=== PATIENT | female | born 1960 ===

== ENCOUNTER 2024-07-16 12:20 | Emergency (ER) | payer MEDICARE, OTHER, SELFPAY ==
[2024-07-16 12:24] VITALS: BP 146/97
--- NOTE | 2024-07-16 12:46 | ED.GENMED ---
History of Present Illness
<Randall Petersen PA-C - Last Filed: 07/16/24 12:52>
General
Chief Complaint: Fall
Source: patient
Time Seen by Provider: 07/16/24 12:36
History of Present Illness
History of Present Illness:
64-year-old female with no significant past medical history presenting to the emergency department for evaluation after [place] [employer] [place] she was going to the bathroom and prior to getting into the bathroom she stumbled and
fell into a cement wall striking her head/neck and right shoulder against the wall and has had continuous pain since then. There was no LOC, no vomiting, no visual changes, no focal weakness or numbness but patient states she is having the
continuous pain which is why she came to the ER. She does note a history of bilateral shoulder replacements in the past but states she is still able to range of motion her right shoulder with minimal difficulty. No other injury sustained or other
concerns.
Past History
<Randall Petersen PA-C - Last Filed: 07/16/24 12:52>
Past History
ED Past Medical History: None
ED Past Surgical History: Orthopedic
Social History
Tobacco: Non-smoker
Alcohol: None
Drug: None
Living: with family
Review of Systems
<Randall Petersen PA-C - Last Filed: 07/16/24 12:52>
Review of Systems
All Other Systems: ROS reviewed and negative except as documented in HPI and ROS
Phy Exam
<Randall Petersen PA-C - Last Filed: 07/16/24 12:52>
Physical Exam
Physical Exam:
GENERAL: Alert , in no apparent distress, tearful and anxious
EYE: conjunctiva clear
Head: Normocephalic atraumatic, no hematoma
NECK: Supple, no midline tenderness
ENT: mmm.
LUNGS: no acute respiratory distress
NEUROLOGICAL: Alert and oriented
SKIN: Warm and dry, skin intact.
MUSCULOSKELETAL: well perfused. Full range of motion bilateral upper extremities. There is mild tenderness over the trapezius on the right shoulder
PSYCH: Normal and appropriate interaction.
Scores
<Randall Petersen PA-C - Last Filed: 07/16/24 12:52>
Heart Failure Risk
Heart Failure Risk Score: Not Applicable
Heart Score for Chest Pain Patients
STEMI patient?: Not applicable
Withdrawal Assessment of Alcohol
Withdrawal Assessment Completed?: Not applicable
Course
<Randall Petersen PA-C - Last Filed: 07/16/24 12:52>
Orders/Labs/Results
Orders:
Orders
07/16/24 12:44
CT Cervical Spine W/o Iv Contr Urgent
Comment:
Reason For Exam: fall, head/neck pain
CT Head W/o Iv Contrast Urgent
Comment:
Reason For Exam: fall, head/neck pain
CR Shoulder, Trauma - Right Urgent
Comment:
Reason For Exam: fall, right shoulder pain
07/16/24 12:52
Ibuprofen [Motrin] 600 mg PO NOW STA
Vital Signs
Initial and Last Documented VS:
Initial Vital Signs
Temp Pulse Resp BP Pulse Ox
98.1 F 87 20 146/97 98
07/16/24 12:24 07/16/24 12:24 07/16/24 12:24 07/16/24 12:24 07/16/24 12:24
Last Documented Vital Signs
Temp Pulse Resp BP Pulse Ox
98.1 F 78 16 135/78 98
07/16/24 12:24 07/16/24 16:24 07/16/24 16:24 07/16/24 16:24 07/16/24 16:24
<Akosua Abdi PA-C - Last Filed: 07/17/24 03:55>
Orders/Labs/Results
Orders:
Orders
07/16/24 12:44
CT Cervical Spine W/o Iv Contr Urgent
Comment:
Reason For Exam: fall, head/neck pain
CT Head W/o Iv Contrast Urgent
Comment:
Reason For Exam: fall, head/neck pain
CR Shoulder, Trauma - Right Urgent
Comment:
Reason For Exam: fall, right shoulder pain
07/16/24 12:52
Ibuprofen [Motrin] 600 mg PO NOW STA
Vital Signs
Initial and Last Documented VS:
Initial Vital Signs
Temp Pulse Resp BP Pulse Ox
98.1 F 87 20 146/97 98
07/16/24 12:24 07/16/24 12:24 07/16/24 12:24 07/16/24 12:24 07/16/24 12:24
Last Documented Vital Signs
Temp Pulse Resp BP Pulse Ox
98.1 F 78 16 135/78 98
07/16/24 12:24 07/16/24 16:24 07/16/24 16:24 07/16/24 16:24 07/16/24 16:24
<NILESH Reinoso Last Filed: 07/16/24 12:52>
MDM/Problems Addressed
Differential Diagnosis Includes:
Contusion, concussion, intracranial bleeding, shoulder contusion, shoulder impingement, rotator cuff injury, dislocation
MDM/Problems Addressed:
64-year-old female presenting to the ER for evaluation after an accidental trip and fall resulting in head, C-spine and pain. No LOC. No observable signs of trauma however patient does have some mild discomfort over the right trapezius. Patient
very anxious over the fall and concerned about her headache. Will obtain CT of the head and cervical spine, x-ray of the right shoulder ordered. Motrin ordered for pain control
<NILESH Reinoso Last Filed: 07/16/24 12:52>
*Pulse Oximetry
Patient hypoxic: no
<Akosua Abdi PA-C - Last Filed: 07/17/24 03:55>
*Critical Care Note
Total Time (30-74mins, 75-104mins- exclusive of procedures): Not Applicable
<Akosua Abdi PA-C - Last Filed: 07/17/24 03:55>
Update Note
Update Note:
Update 3:47 PM: Received patient in sign out pending imaging studies. CT imaging with frontal scalp hematoma without evidence of acute intracranial traumatic injury or c-spine injury. Left shoulder xray shows hardware in place without any associated
fracture. Discussed findings with patient at bedside. She is comfortable appearing in no distress. Discussed shoulder sling which she says that she already has at home. Feel stable for d/c home with PCP and ortho f/u. Strict return precautions
discussed.
ED Attending Note
<Randall Petersen PA-C - Last Filed: 07/16/24 12:52>
-
Portions of this chart may have been created with voice recognition software.� Occasional wrong word or��sound alike� substitutions may have occurred due to the inherent limitations of voice recognition software.
Discharge Plan
Departure
Patient Disposition: Home (Routine Discharge)
Date of Disposition: 07/16/24
Time of Disposition: 16:16
Patient with high blood pressure during this ER visit?: Yes
Condition: Good
Covid-19: Not Applicable
Discharge Problem:
Fall, Hematoma of frontal scalp, Acute pain of right shoulder
Instructions: Concussion, Adult (DC), BLOOD PRESSURE
Referrals:
UNKNOWN - PT DOES,NOT KNOW [Family Provider] -
Activity Restrictions/Additional Instructions:
RETURN TO THE EMERGENCY DEPARTMENT WITH ANY SEVERE HEADACHE OR NECK PAIN, INTRACTABLE VOMITING, PERSISTENT LIGHTHEADEDNESS/DIZZINESS, CHANGES IN VISION, CONFUSION, WORSENING IN CURRENT SYMPTOMS, OR ANY OTHER CONCERNS
- As discussed your CT imaging of your head and cervical spine as well as your shoulder x-ray showed no acute traumatic injuries. You were found to have a hematoma to your right frontal scalp.
- You should apply ice and take Tylenol/Motrin as needed for pain. Stay well-hydrated and get plenty of rest.
- You can use shoulder sling that you have at home as needed for discomfort and right shoulder.
- You should follow-up with your primary care and orthopedic for further evaluation/management and to ensure that symptoms are improving
Monitor your symptoms closely and return to the emergency department with any acute worsening/new symptoms or any other concerns
Interventions
Interventions:
*Risk Screen - Suicide Last Done: 07/16/24 14:08
*General Assessment Last Done: 07/16/24 12:24
*Neglect/Abuse Screening Last Done: 07/16/24 14:08
*ED- Fall Risk Assessment Last Done: 07/16/24 14:08
*ED COVID-19 Vaccine History Last Done: 07/16/24 14:08
*Nursing Disposition Last Done: 07/16/24 16:24
ED-Musculoskeletal Assessment Last Done: 07/16/24 14:08
ED- Neurological Assessment Last Done: 07/16/24 14:08
ED-Skin Assessment Last Done: 07/16/24 14:08
Discharge Date and Time
Discharge Date/Time: 07/16/24 16:24
Print Language: NEPALI
[2024-07-16] MEDS: MOTRIN 600 MG PO (12:58)
[2024-07-16 16:24] VITALS: BP 135/78
== END 2024-07-16 16:24 | disposition home or self-care (01) ==
LOC: EMR 12:20
PROVIDERS: EMERGENCY PHYSICIAN Emergency Medicine
DX: S00.03XA Contusion of scalp, initial encounter (principal); M25.511 Pain in right shoulder; W18.09XA Striking against other object with subsequent fall, initial encounter; Y92.512 Supermarket, store or market as the place of occurrence of the external cause; S40.011A Contusion of right shoulder, initial encounter
CPT/HCPCS: 99284; 70450; 72125; 73030